=== PATIENT | male | born 1975 | race Caucasian/White ===

== ENCOUNTER 2017-07-24 20:10 | Emergency (ER) | payer MEDICAID ==
[~2017-07-24] VITALS: Ht 177.8 cm; Wt 84.5 kg
[~2017-07-24 20:10] MED LIST: AMLO5TAB2 PO; CEPH-376 PO; HYDR-3237 PO; LOSA50TA2 PO; METH4TAB2 PO
[2017-07-24 20:17] VITALS: BP 172/90
[2017-07-24] MEDS ORDERED: ACETAMINOPHEN 325 MG TABLET ONE (20:47)
[2017-07-24] MEDS ORDERED: IBUPROFEN 200 MG TABLET ONE (20:47)
[2017-07-24] MEDS ORDERED: ACETAMINOPHEN 325 MG TABLET PO ONE (21:00)
[2017-07-24] MEDS ORDERED: IBUPROFEN 200 MG TABLET PO ONE (21:00)
[2017-07-24 21:37] LABS: RAPID INFLUENZA A Negative (Negative); RAPID INFLUENZA B Negative (Negative)
== END 2017-07-24 21:47 | disposition home or self-care (01) ==
LOC: ED 20:46
DX: J11.00 Influenza due to unidentified influenza virus with unspecified type of pneumonia (principal); I10 Essential (primary) hypertension; M10.9 Gout, unspecified
CPT/HCPCS: 71020; 87400; 99285